=== PATIENT | male | born 1945 | race Caucasian/White ===

== ENCOUNTER 2016-06-15 17:00 | Emergency (ER) | payer MEDICARE, OTHER ==
[2016-06-15] MEDS ORDERED: SODIUM CHLORIDE 0.9% 1,000 ML IV ONE (21:24)
[2016-06-15] MEDS ORDERED: ONDANSETRON 4 MG/2 ML VIAL IVP STA (22:07)
[2016-06-15] MEDS ORDERED: IOPAMIDOL-300 100 ML VIAL IVP ONE (22:15)
[2016-06-15] MEDS ORDERED: AMOX/CLAV 875 MG/125 MG TABLET PO STA (22:59)
[2016-06-15] MEDS ORDERED: AMOX/CLAV 875 MG/125 MG TABLET PO ONE (23:03)
== END 2016-06-15 23:10 | disposition home or self-care (01) ==
DX: K57.32 Diverticulitis of large intestine without perforation or abscess without bleeding (principal); Z86.711 Personal history of pulmonary embolism; R03.0 Elevated blood-pressure reading, without diagnosis of hypertension
CPT/HCPCS: 36415; 74177; 80053; 81003; 83690; 85025; 99284; A9270; Q9967

== ENCOUNTER 2017-11-06 09:47 | Outpatient (CLI) | payer MEDICARE, OTHER | END 2017-11-06 09:48 | disposition home or self-care (01) | LOC: SC 09:47 | PROVIDERS: ATTEND Internal Medicine Pulmonary Disease | DX: G47.30 Sleep apnea, unspecified (principal); G47.10 Hypersomnia, unspecified; R06.83 Snoring | CPT/HCPCS: 99203; G0463; 99212 ==

== ENCOUNTER 2018-01-10 10:15 | Outpatient (CLI) | payer MEDICARE, OTHER | END 2018-01-10 10:16 | disposition home or self-care (01) | LOC: SC 10:15 | PROVIDERS: ATTEND Nurse Practitioner Family | DX: G47.33 Obstructive sleep apnea (adult) (pediatric) (principal) | CPT/HCPCS: 99214; G0463; 99212 ==

== ENCOUNTER 2018-03-20 11:13 | Outpatient (CLI) | payer MEDICARE, OTHER | END 2018-03-20 11:14 | disposition home or self-care (01) | LOC: SC 11:13 | PROVIDERS: ATTEND Nurse Practitioner Family | DX: G47.33 Obstructive sleep apnea (adult) (pediatric) (principal) | CPT/HCPCS: 99215; G0463; 99212 ==

== ENCOUNTER 2018-05-03 14:14 | Outpatient (CLI) | payer MEDICARE | END 2018-05-03 14:15 | disposition home or self-care (01) | LOC: SC 14:14 | PROVIDERS: ATTEND Nurse Practitioner Family | DX: G47.33 Obstructive sleep apnea (adult) (pediatric) (principal) | CPT/HCPCS: 99214; G0463; 99212 ==

== ENCOUNTER 2018-09-18 09:15 | Outpatient (CLI) | payer MEDICARE | END 2018-09-18 09:16 | disposition home or self-care (01) | LOC: SC 09:15 | PROVIDERS: ATTEND Nurse Practitioner Family | DX: G47.33 Obstructive sleep apnea (adult) (pediatric) (principal) | CPT/HCPCS: 99214; G0463; 99212 ==

== ENCOUNTER 2019-01-29 10:53 | Outpatient (CLI) | payer MEDICARE ==
[2019-01-29 11:04] VITALS: BP 114/80
--- NOTE | 2019-01-29 11:04 | SLEEP CARE CONSULTATION ---
Information from patient questionnaire entered by Halima Coles. I have reviewed and concur with the information entered by Halima Coles. This document represents the service I personally performed and the decisions made by me, Angela Catalan, RN, MSN, [employer]. History of Present Illness Previous diagnosis: Moderate, Obstructive Sleep Apnea-Hypopnea Syndrome AHI: 22.8 Reason for follow up: six month Equipment type: CPAP Equipment obtained from: [facility] Mask style: Nasal (Dreamwear) Mask brand: Respironics Backup mask available: No (keep current mask as spare when replaced) Last cushion change: 2 weeks ago - changes about monthly Prior sleep studies: Yes CPAP Compliance Data - Data Reviewed with Patient Average duration of nightly device use: 7h 40m Compliance rate %: 95 Current pressure setting (cmH2O): 9 Humidity settin Heated hose settin Average residual AHI: 4.1 Average large leak: 1m 21s Subjective Missed days of use due to: reports: travel (camping unable to use. ) Patient concerns: reports: mask discomfort (sometimes the mask pinches the nose and adjusts for comfort. The cushion will also slip. ), dry mouth, nose, throat (*mouth - every couple months ). denies: aerophagia, air blowing in eyes, mask leak noise, condensation in mask/hose, nasal congestion, epistaxis Observed to snore while using device: No Current pressure setting perceived as: comfortable On therapy, patient: reports: sleeping better, awakening more refreshed, being more awake and alert during the day, more rested overall. denies: drowsiness while driving Initial [place] Sleepiness Scale score: 7 Current [place] Sleepiness Scale score: 6 Allergies and Home Medications Known drug allergies: No Home medication list reviewed: Yes Allergy and home medication list: Medication Name (generic/name brand) Strength & Dosage Magnesium Glycinate 120mg tab two daily at bedtime Turmeric PRN Review of Systems Review of systems same as previous: Yes Physical Exam Blood Pressure: 114/80 Cuff size: regular Heart Rate: 59 O2 Saturation: 98 Height: 5 ft 10 in Weight: 178 lb 9.6 oz Weight change since last visit: lost 2.4 pounds Body Mass Index: 25.6 BMI Classification: Overweight Impression and Plan 1. Obstructive Sleep Apnea-Hypopnea Syndrome, moderate, with good treatment compliance and good apnea control. On CPAP therapy, the patient has better sleep quality and is more rested overall. For ease of travel in airlines the CPAP is a medical Carry on. The size can be reduced by removing humidity but is noisier. If trouble getting distilled water, can use saline nasal spray given to prep nose with moisture. Advised to check process before travel. Saline nasal spray also be used prior to CPAP to clear nose of dried secretions and washes off allergens. An extension cord was also advised in case the bed is not near an outlet. For camping, a CPAP battery is available. Questions answered re pressure. His weight is stable and may try to lose a few pounds only. He is aware of symptoms to report for pressure change if needed for weight change. For his mask concerns, he was shown mask alternatives. He would like to try the [employer] mask. I will order a mask refitting. He is to contact [facility] for fitting and process discussed. For dryness symptoms, he can adjust the humidity as shown on sample device. Printed instructions given. Cleaning questions answered and printed reference sheet given. Patient's apnea severity and rationale for treatment to reduce apnea, improve sleep quality and reduce cardiovascular and cerebrovascular events was reviewed. I also reviewed the benefit of consistent device use of CPAP for his restless leg syndrome. * Continue CPAP pressure at 9 cmH2O * Implement travel tips. * mask refitting. * Adjust humidity as instructed * Notify me if snoring with mask or feeling that the pressure is too much or too little * Attempt to lose some weight * Return for follow up in 1 year, or sooner if concerns arise I spent 100% of this 30 minute visit face to face with the patient with greater than 50% of this was spent time counseling the patient and coordination of care.
== END 2019-01-29 10:54 | disposition home or self-care (01) ==
LOC: SC 10:53
PROVIDERS: ATTEND Nurse Practitioner Family
DX: G47.33 Obstructive sleep apnea (adult) (pediatric) (principal)
CPT/HCPCS: 99214; G0463; 99212

== ENCOUNTER 2020-01-15 07:54 | Outpatient (CLI) | payer MEDICARE ==
[2020-01-15 14:36] LABS: BASOPHILS % (AUTO) 0.6 %; EOSINOPHILS # (AUTO) 0.1 10^3/uL (0.0-0.7); EOSINOPHILS % (AUTO) 2.3 %; HGB - HEMOGLOBIN 14.8 g/dL (14.0-18.0); LYMPHOCYTES # (AUTO) 1.5 10^3/uL (1.5-3.5); LYMPHOCYTES % (AUTO) 28.1 %; MEAN CORPUSCULAR HEMOGLOBIN 32.9 pg (27.0-31.0); MEAN CORPUSCULAR HGB CONC 33.8 g/dL (32.0-36.0); MEAN CORPUSCULAR VOLUME 97.3 fL (80.0-94.0); MEAN PLATELET VOLUME 11.1 fL (7.4-11.4); MONOCYTES # (AUTO) 0.6 10^3/uL (0.0-1.0); MONOCYTES % (AUTO) 10.6 %; NEUTROPHILS # (AUTO) 3.1 10^3/uL (1.5-6.6); PLT - PLATELET COUNT 165 10^3/uL (130-450); RED CELL DISTRIBUTION WIDTH 12.5 % (12.0-15.0); WHITE BLOOD COUNT 5.3 x10^3/uL (4.8-10.8)
[2020-01-15 14:47] LABS: ALBUMIN 3.9 g/dL (3.2-5.5); ALBUMIN/GLOBULIN RATIO 1.3 (1.0-2.2); ALKALINE PHOSPHATASE 38 IU/L (42-121); ALT ALANINE AMINOTRANSFERASE 18 IU/L (10-60); AST ASPARTATE AMINOTRANSFERASE 25 IU/L (10-42); BILIRUBIN,TOTAL 0.8 mg/dL (0.2-1.0); BUN - BLOOD UREA NITROGEN 23 mg/dL (6-20); CALCIUM 9.3 mg/dL (8.5-10.3); CARBON DIOXIDE - CO2 26 mmol/L (21-32); CHLORIDE 106 mmol/L (101-111); CHOL/HDL RATIO 4.3 (<5.0); CHOLESTEROL 233 mg/dL; GLUCOSE 97 mg/dL (70-100); HDL CHOLESTEROL 54 mg/dL; LDL CHOLESTEROL,CALCULATED 161 mg/dL; SODIUM 140 mmol/L (135-145); VLDL CHOLESTEROL 18 mg/dL
== END 2020-01-15 07:55 | disposition home or self-care (01) ==
LOC: LAB.S 07:54
PROVIDERS: ATTEND Internal Medicine
DX: Z00.00 Encounter for general adult medical examination without abnormal findings (principal); Z12.5 Encounter for screening for malignant neoplasm of prostate
CPT/HCPCS: 36415; 80053; 80061; 85025; G0103; 83721; 84153

== ENCOUNTER 2020-10-23 14:15 | Outpatient (CLI) | payer MEDICARE ==
--- NOTE | 2020-10-23 14:40 | SLEEP CARE CONSULTATION ---
Information from patient questionnaire entered by Catrachita Jain. I have reviewed and concur with the information entered by Catrachita Jain. This document represents the service I personally performed and the decisions made by , Zoila Montalvo ARNP. History of Present Illness Service Date and Time: 10/23/2020 1415 Previous diagnosis: Moderate, Obstructive Sleep Apnea-Hypopnea Syndrome AHI: 22.8 (in 2018) Reason for follow up: annual (last seen 01/2019) Equipment type: CPAP Equipment obtained from: [employer] (getting supplies as needed) Mask style: Nasal Mask brand: Respironics (Dreamwear Wisp) Backup mask available: No (unsure; will keep old mask when replaced) Last cushion change: 1-2 months Prior sleep studies: Yes Year and Where: 2018 - [facility] Type of Sleep Study: Home sleep study HPI additional information: ASHLEY VERA was diagnosed to have moderate, AHI 22.8, obstructive sleep apnea-hypopnea syndrome and returns via Telehealth visit today for CPAP therapy annual follow-up. CPAP Compliance Data - Data Reviewed with Patient Average duration of nightly device use: 6 hr 40 min Compliance rate %: 96.7 (180 days) Current pressure setting (cmH2O): 9 Humidity settin Heated hose settin Average residual AHI: 3.6 Average large leak: 6 min 20 sec Subjective Patient concerns: reports: mask leak noise (comes from the top of mask headgear), other (machine on recall; occasional Cpap cough). denies: aerophagia, mask discomfort, air blowing in eyes, condensation in mask/hose, nasal congestion, dry mouth, nose, throat, epistaxis Observed to snore while using device: No Current pressure setting perceived as: comfortable On therapy, patient: reports: sleeping better, awakening more refreshed, being more awake and alert during the day, more rested overall. denies: drowsiness while driving Initial [place] Sleepiness Scale score: 7 (in 2018) Current [place] Sleepiness Scale score: 8 Allergies and Home Medications Home medication list reviewed: Yes (no changes) Review of Systems Review of systems same as previous: Yes (no changes) Physical Exam Vital signs obtained and entered by: Telehealth visit to reduce exposure during Covid pandemic Height: 5 ft 10 in Impression and Plan 1. Obstructive Sleep Apnea-Hypopnea Syndrome, moderate, with good treatment compliance and good apnea control. On CPAP therapy, the patient has better sleep quality and is more rested overall. Patient is concerned about the recall on his device. Patient has already registered their device for the recall. Patient denies any black particles seen in machine or hoses, any unusual odors coming from device. Patient has had an intermittent cough since he has been using this machine but he is not sure if it is from machine or other causes. Patient informed that they may use an inline CPAP filter that they can obtain online to reduce chance of any particles being inhaled or ingested. We discussed thoroughly the health risks of not using the CPAP versus continuing use with the filter in place and he intends to get filter and continue using his CPAP. If patient is not able to sleep due to waking up choking, gasping for air or other respiratory distress that they may decide to continue using it until it is either replaced or repaired. Patient states his device is still under warranty and would like to try to get a replacement device because he is getting some upper airway irritation which could be due to the recall. I will write a prescription and send to his DME. He will let us know if he is able to get a replacement device and make a follow up for device compliance followup. Patient voiced understanding and agreement with plan. Patient's apnea severity and rationale for treatment to reduce apnea, improve sleep quality and reduce cardiovascular and cerebrovascular events was reviewed. I also reviewed the benefit of consistent device use of CPAP for RLS. * Continue auto CPAP pressure at 9 cmH2O * Replacement device prescription * Notify me if snoring with mask or feeling that the pressure is too much or too little * Attempt to lose weight * Call this office if any problems using CPAP * Return for follow up in 1 year or one month after he obtains new device, or sooner if concerns arise Counseling Topics: Spare mask, Weight loss health impact Visit Type: Telehealth Video Video Type: VSee Patient Location: Home Location of Provider: Office Patient agrees and consents to this telehealth visit type: Yes Patient agrees to have their insurance billed: Yes Time Spent with Patient (minutes): 24 Provider Statement: I spent 100% of the Telehealth Video Call with the patient with greater than 50% spent counseling the patient and coordination of care.
== END 2020-10-23 14:16 | disposition home or self-care (01) ==
LOC: SC 14:15
PROVIDERS: ATTEND Nurse Practitioner Family
DX: G47.33 Obstructive sleep apnea (adult) (pediatric) (principal)

== ENCOUNTER 2020-11-03 08:00 | Outpatient (CLI) | payer MEDICARE ==
--- NOTE | 2020-11-03 15:13 | XRAY Report ---
PROCEDURE: Chest 2 View X-Ray INDICATIONS: VIRAL LOWER RESPIRATORY INFECTION TECHNIQUE: 2 view(s) of the chest. COMPARISON: None. FINDINGS: Surgical changes and devices: None. Lungs and pleura: No pleural effusions or pneumothorax. Focal opacity noted in the right upper lobe. Mediastinum: Mediastinal contours are normal. Heart size is normal. Bones and chest wall: No suspicious bony abnormalities. Soft tissues appear unremarkable. IMPRESSION: Right upper lobe pneumonia. Recommend follow-up chest x-rays to resolution of the findin g to exclude underlying neoplastic process. Reviewed by: Alma Jimenez MD, PhD on 11/03/2020 3:12 PM PDT Approved by: Alma Jimenez MD, PhD on 11/03/2020 3:12 PM PDT Station ID: [id number]
== END 2020-11-03 23:59 | disposition home or self-care (01) ==
LOC: DI.S 08:00
PROVIDERS: ATTEND Emergency Medicine
DX: B34.9 Viral infection, unspecified (principal); J18.1 Lobar pneumonia, unspecified organism
CPT/HCPCS: 36415; 85379

== ENCOUNTER 2020-11-03 21:22 | Emergency (ER) | payer MEDICARE ==
[2020-11-03 21:50] LABS: BASOPHILS % (AUTO) 0.5 %; EOSINOPHILS # (AUTO) 0.2 10^3/uL (0.0-0.7); EOSINOPHILS % (AUTO) 1.9 %; HCT - HEMATOCRIT 40.4 % (42.0-52.0); HGB - HEMOGLOBIN 13.6 g/dL (14.0-18.0); LYMPHOCYTES % (AUTO) 11.6 %; MEAN CORPUSCULAR HEMOGLOBIN 32.2 pg (27.0-31.0); MEAN CORPUSCULAR HGB CONC 33.7 g/dL (32.0-36.0); MEAN CORPUSCULAR VOLUME 95.5 fL (80.0-94.0); MEAN PLATELET VOLUME 10.1 fL (7.4-11.4); MONOCYTES # (AUTO) 0.8 10^3/uL (0.0-1.0); MONOCYTES % (AUTO) 9.9 %; NEUTROPHILS # (AUTO) 6.4 10^3/uL (1.5-6.6); NEUTROPHILS % (AUTO) 75.7 %; PLT - PLATELET COUNT 164 10^3/uL (130-450); RED BLOOD COUNT 4.23 10^6/uL (4.70-6.10); RED CELL DISTRIBUTION WIDTH 12.5 % (12.0-15.0); WHITE BLOOD COUNT 8.4 x10^3/uL (4.8-10.8)
[2020-11-03 22:00] LABS: CREATININE 1.2 mg/dL (0.6-1.2)
[2020-11-03] MEDS ORDERED: IOPAMIDOL-300 100 ML VIAL ONE (23:02)
[2020-11-03] MEDS ORDERED: IOPAMIDOL-300 100 ML VIAL IVP ONE (23:38)
[2020-11-03] MEDS ORDERED: BENZONATATE 100 MG CAPSULE PO STA (23:55)
[2020-11-03] MEDS ORDERED: ALBUTEROL 1 PUFF INH STA (23:55)
--- NOTE | 2020-11-03 23:55 | ED Physician Documentation ---
PD HPI DYSPNEA - Stated complaint Stated Complaint: SOA - Chief complaint Chief Complaint: Resp - History obtained from History obtained from: Patient - History of Present Illness Timing - onset: How many weeks ago (1) Timing - onset during: Light activity Timing - duration: Weeks (1) Timing - details: Gradual onset, Still present Inciting event(s): No: Out of meds, URI Associated symptoms: Cough. No: Fever, Wheezing, Chest pain / discomfort, Palpitations, Bilateral edema, Unilateral edema Recently seen: Clinic (seen at [facility] and had CXR showing right upper pneumonia. Also history of PE few years ago, so had D-dimer test that was elevated.) Review of Systems Constitutional: denies: Fever, Chills Nose: denies: Rhinorrhea / runny nose, Congestion Throat: denies: Sore throat Cardiac: denies: Chest pain / pressure, Palpitations, Pedal edema, Calf pain Respiratory: reports: Dyspnea, Cough. denies: Wheezing GI: denies: Nausea, Vomiting, Diarrhea PD PAST MEDICAL HISTORY - Past Medical History Cardiovascular: Hypertension, Pulmonary embolism (after hernia surgery few years ago. On anticoag for 6 months only, as considered provoked cause. ) Respiratory: None Neuro: None Endocrine/Autoimmune: None - Past Surgical History Ortho: Hip replacement - Present Medications Home Medications: Ambulatory Orders Medication Instructions Recorded Confirmed Amox/Clav 875/125 [Augmentin] 1 each PO Q12H #20 tablet 06/15/16 Glucosamine Sulfate 500 mg PO DAILY 06/15/16 06/15/16 Magnesium Citrate 100 mg PO DAILY 06/15/16 06/15/16 Ondansetron Odt [Zofran] 4 mg TL Q6H PRN #10 tablet 06/15/16 Albuterol Sulf [Ventolin Hfa 2 - 3 puffs INH QID 21 Days #1 11/04/20 Inhaler] inhaler Rivaroxaban [Xarelto] 15 mg PO BID 21 Days #42 tablet 11/04/20 - Allergies Allergies/Adverse Reactions: Allergies Allergy/AdvReac Type Severity Reaction Status Date / Time No Known Drug Allergies Allergy Verified 11/03/20 21:28 - Social History Does the pt smoke?: No Smoking Status: Never smoker Does the pt have substance abuse?: No - Immunizations Immunizations are current?: Yes PD ED PE NORMAL - Vitals Vital signs reviewed: Yes - General General: Alert and oriented X 3, No acute distress, Well developed/nourished - HEENT HEENT: Pharynx benign - Neck Neck: Supple, no meningeal sign, No adenopathy - Cardiac Cardiac: RRR, No murmur - Respiratory Respiratory: No: Clear bilaterally (congestion sounds right upper. ) - Abdomen Abdomen: Soft, Non tender - Back Back: No CVA TTP - Derm Derm: Normal color, Warm and dry - Extremities Extremities: No tenderness to palpate, Normal ROM s pain, No edema, No calf tenderness / cord - Neuro Neuro: Alert and oriented X 3, No motor deficit, Normal speech Results - Vitals Vitals: Oxygen O2 Source Room air - Labs Labs: Laboratory Tests 11/03/20 11/03/20 11/03/20 21:44 21:44 21:44 WBC 8.4 RBC 4.23 L Hgb 13.6 L Hct 40.4 L MCV 95.5 H MCH 32.2 H MCHC 33.7 RDW 12.5 Plt Count 164 MPV 10.1 Neut # (Auto) 6.4 Lymph # (Auto) 1.0 L Sanders # (Auto) 0.8 Eos # (Auto) 0.2 Baso # (Auto) 0.0 Absolute Nucleated RBC 0.00 Nucleated RBC % 0.0 Sodium 140 Potassium 4.0 Chloride 106 Carbon Dioxide 24 Anion Gap 10.0 BUN 19 Creatinine 1.2 Estimated GFR (MDRD) 59 L Glucose 135 H Calcium 9.0 Troponin I High Sens 9.5 B-Natriuretic Peptide 11/03/20 21:44 WBC RBC Hgb Hct MCV MCH MCHC RDW Plt Count MPV Neut # (Auto) Lymph # (Auto) Sanders # (Auto) Eos # (Auto) Baso # (Auto) Absolute Nucleated RBC Nucleated RBC % Sodium Potassium Chloride Carbon Dioxide Anion Gap BUN Creatinine Estimated GFR (MDRD) Glucose Calcium Troponin I High Sens B-Natriuretic Peptide 78 - Rads (name of study) chest CT-A Radiology: Prelim report reviewed, Discussed with rads (right upper infiltrate c/w pneumonia. Multiple subsegmental filling defects bilaterally. Segmental filling defect right upper area near infiltrate. ), See rad report PD MEDICAL DECISION MAKING - ED course Complexity details: reviewed results, considered differential (patient is clinically doing well without signs of heart failure. He is reasonable for outpt therapy. His preference is for discharging home. ), d/w patient Departure - Departure Disposition: 01 Home, Self Care Clinical Impression: Pneumonia Qualifiers: Pneumonia type: due to unspecified organism Laterality: right Lung location: upper lobe of lung Qualified Code(s): J18.9 - Pneumonia, unspecified organism Pulmonary emboli Qualifiers: Pulmonary embolism type: multiple subsegmental (without acute cor pulmonale) Qualified Code(s): I26.94 - Multiple subsegmental pulmonary emboli without acute cor pulmonale Condition: Stable Record reviewed to determine appropriate education?: Yes Instructions: Embolism Pulmonary Dc, ED Pneumonia Adult Follow-Up: Zaheer Cortes MD [Primary Care Provider] - Prescriptions: Albuterol Sulf [Ventolin Hfa Inhaler] 2 - 3 puffs INH QID 21 Days #1 inhaler Rivaroxaban [Xarelto] 15 mg PO BID 21 Days #42 tablet Comments: Your CT scan shows multiple small clots in the small blood vessels on the left and the right. This most commonly occurs when a clot came through the venous side into the right side of the heart and broke up into small pieces as it was added by the a heart valves. You will want to be on a blood thinner for the next likely [address] scan also confirmed the pneumonia on the right upper area. Use the Augmentin antibiotic previously prescribed. You could also add an albuterol inhaler 2 to 3 puffs 4 times a day for the next couple of weeks to help aeration through the lungs and improve breathing. Stay adequately hydrated. Follow-up with your primary care in the next several days to a week or so. You will need to discuss with your primary care and possibly in conjunction with a supervisor grinding and subsequent blood testing to decide if there is a need for lifelong blood thinning/ any signs of an underlying clotting disorder. Transmitted your prescriptions to the [facility] in [place]. Discharge Date/Time: 11/04/20 01:29
[2020-11-04] MEDS ORDERED: RIVAROXABAN 15 MG TABLET PO STA (01:13)
[2020-11-04 01:29] VITALS: BP 147/93
--- NOTE | 2020-11-04 09:33 | CT Report ---
PROCEDURE: ANGIO CHEST W/WO INDICATIONS: dyspnea, infiltrate, elevated d-dimer CONTRAST: IV CONTRAST: Isovue 300 ml: 80 PO CONTRAST: *NO PO CONTRAST TECHNIQUE: After the administration of intravenous contrast, images were acquired from the pulmonary apices to t he posterior costophrenic angles. 3-dimensional maximum intensity projection (MIP) coronal and sagit camila reformats were then acquired through the thorax. For radiation dose reduction, the following was used: automated exposure control, adjustment of mA and/or kV according to patient size. COMPARISON: Chest x-ray, 11/03/2020. FINDINGS: Image quality: Excellent. Pulmonary arteries: Pulmonary arteries are normal in size. There are multiple intraluminal filling d efects involving upper and lower lobe segmental and subsegmental arteries bilaterally consistent with pulmonary embolism. Lungs and pleura: Lungs are clear. No pleural effusions or pneumothorax. Central and peripheral ai rways are patent. Mediastinum: Heart size is prominent. The right right ventricle is moderately dilated suggesting rig ht heart strain. No pericardial effusion. Zdal-ec-hcuzmuey coronary artery desiccation. No mediastin al or hilar adenopathy. Thoracic aorta is normal in caliber and enhancement. Esophagus is normal in caliber. Small hiatal hernia. Bones and chest wall: No suspicious bony lesions. There are moderate to severe degenerative changes in the thick and upper lumbar spine. No axillary or supraclavicular adenopathy. The thyroid is norm al in size and there are no incidental findings. Abdomen: Visualized upper abdominal solid organs appear normal in the early arterial phase of enhanc ement. IMPRESSION: 1. Bilateral pulmonary comparison. 2. A triangular-shaped peripheral airspace density in the central cavity in the right upper lobe coul d represent pulmonary infarct. Differential diagnoses include infectious or inflammatory processes. R ecommend clinical correlation. 3. Dilated right ventricle suggesting right heart strain. 4. Hslp-qy-szqvyvho coronary artery calcification. No significant discrepancy with the preliminary interpretation. Reviewed by: Alvaro Us MD on 11/04/2020 9:32 AM PDT Approved by: Alvaro Us MD on 11/04/2020 9:32 AM PDT Station ID: [id number]
== END 2020-11-04 01:29 | disposition home or self-care (01) ==
LOC: ED 21:22
DX: J18.9 Pneumonia, unspecified organism (principal); I26.94 Multiple subsegmental thrombotic pulmonary emboli without acute cor pulmonale; Z79.01 Long term (current) use of anticoagulants
CPT/HCPCS: 36415; 71275; 80048; 83880; 84484; 85025; 94640; 94664; 99284; A9270; Q9967

== ENCOUNTER 2020-12-14 09:23 | Outpatient (CLI) | payer MEDICARE ==
[2020-12-14] MEDS ORDERED: IOVERSOL 320 100 ML VIAL IVP ONE ×2 (09:34→10:03)
--- NOTE | 2020-12-14 10:55 | CT Report ---
PROCEDURE: CHEST W INDICATIONS: MULT SUBSEGMENTAL PULMON EMBOLI WITHOUT ACUTE COR CONTRAST: IV CONTRAST: Optiray 320 ml: 100 PO CONTRAST: *NO PO CONTRAST TECHNIQUE: After the administration of intravenous contrast, 1 mm axial images were acquired from the pulmonary apices through the posterior costophrenic angles. Axial 5 mm soft tissue kernel reconstructions were performed as well as 8 mm axial MIP and coronal and sagittal 5 mm reformations. For radiation dose reduction, the following was used: automated exposure control, adjustment of mA and/or kV according to patient size. COMPARISON: None. FINDINGS: Image quality: Excellent. Lungs and pleura: Airspace is significantly smaller with only residual scarring seen on the current CT. opacity seen on the prior CT on 11/04/2020No acute air space opacities. No pleural effusions or pn eumothorax. Central and peripheral airways are patent and normal in caliber. Mediastinum: Heart size is normal. No pericardial effusion. The coronary arteries have atherosclero tic calcifications. No mediastinal or hilar adenopathy by size criteria. Thoracic aorta and central pulmonary arteries are normal in size. Pulmonary artery emboli seen on the prior CT on 11/03/2020 are n o longer present. Esophagus is normal in caliber. No hiatal hernia. Bones and chest wall: No suspicious bony lesions. No vertebral body compression fractures. Multile marc degenerative changes of the thoracic spine. No axillary or supraclavicular adenopathy by size cri teria. Thyroid gland . Abdomen: Visualized upper abdominal solid organs appear normal. Upper abdominal bowel loops are nor mal in caliber. IMPRESSION: 1. Interval resolution of previously seen pulmonary emboli. 2. Right upper lobe airspace density seen on the prior CT thought to possibly be a pulmonary infarct has resolved with only residual scarring seen on the current exam. Follow-up CT in 6 months could be performed to demonstrate complete resolution and to rule out underlying mass. 2. No evidence of metastatic disease on the current CT. Reviewed by: Erwin Coto on 12/14/2020 10:53 AM PDT Approved by: Erwin Coto on 12/14/2020 10:53 AM PDT Station ID: [id number]
== END 2020-12-14 09:24 | disposition home or self-care (01) ==
LOC: DI 09:23
PROVIDERS: ATTEND Internal Medicine
DX: I26.99 Other pulmonary embolism without acute cor pulmonale (principal)
CPT/HCPCS: 71260; Q9967

== ENCOUNTER 2021-01-08 11:24 | Outpatient (CLI) | payer MEDICARE | END 2021-01-08 11:25 | disposition home or self-care (01) | LOC: LAB.S 11:24 | PROVIDERS: ATTEND Internal Medicine | DX: I26.99 Other pulmonary embolism without acute cor pulmonale (principal) | CPT/HCPCS: 81240; 81241; 81599; 85303; 85305; 85306 ==

== ENCOUNTER 2021-05-12 09:10 | Outpatient (CLI) | payer MEDICARE ==
[2021-05-12] MEDS ORDERED: IOVERSOL 320 100 ML VIAL IVP ONE ×2 (09:23→09:56)
[2021-05-12 09:24] LABS: BASOPHILS # (AUTO) 0.1 10^3/uL (0.0-0.1); EOSINOPHILS # (AUTO) 0.1 10^3/uL (0.0-0.7); EOSINOPHILS % (AUTO) 2.6 %; HCT - HEMATOCRIT 38.9 % (42.0-52.0); HGB - HEMOGLOBIN 12.9 g/dL (14.0-18.0); LYMPHOCYTES # (AUTO) 1.3 10^3/uL (1.5-3.5); LYMPHOCYTES % (AUTO) 26.3 %; MEAN CORPUSCULAR HGB CONC 33.2 g/dL (32.0-36.0); MEAN CORPUSCULAR VOLUME 93.5 fL (80.0-94.0); MEAN PLATELET VOLUME 10.1 fL (7.4-11.4); MONOCYTES # (AUTO) 0.5 10^3/uL (0.0-1.0); MONOCYTES % (AUTO) 9.3 %; NEUTROPHILS # (AUTO) 3.1 10^3/uL (1.5-6.6); NEUTROPHILS % (AUTO) 60.4 %; PLT - PLATELET COUNT 176 10^3/uL (130-450); RED BLOOD COUNT 4.16 10^6/uL (4.70-6.10); RED CELL DISTRIBUTION WIDTH 12.7 % (12.0-15.0); WHITE BLOOD COUNT 5.1 x10^3/uL (4.8-10.8)
[2021-05-12 09:36] LABS: ALBUMIN/GLOBULIN RATIO 1.3 (1.0-2.2); BILIRUBIN,TOTAL 0.7 mg/dL (0.2-1.0); CALCIUM 9.1 mg/dL (8.5-10.3); CREATININE 1.1 mg/dL (0.6-1.2); POTASSIUM 4.3 mmol/L (3.5-5.0)
--- NOTE | 2021-05-12 14:36 | CT Report ---
PROCEDURE: CHEST W INDICATIONS: MULT SUBSEGMENTAL PULMON EMBOLI CONTRAST: IV CONTRAST: Optiray 320 ml: 100 PO CONTRAST: *NO PO CONTRAST TECHNIQUE: After the administration of intravenous contrast, 1 mm axial images were acquired from the pulmonary apices through the posterior costophrenic angles. Axial 5 mm soft tissue kernel reconstructions were performed as well as 8 mm axial MIP and coronal and sagittal 5 mm reformations. For radiation dose reduction, the following was used: automated exposure control, adjustment of mA and/or kV according to patient size. COMPARISON: CT chest 12/14/2020, CT chest angiogram 11/03/2020. FINDINGS: Image quality: Excellent. Lungs and pleura: There is progressive decrease in a peripheral region of consolidation in the right upper lobe with mild residual linear scarring. No new suspicious nodules or mass lesions. There is mi ld dependent atelectasis bilaterally. There are a few bilateral calcified nodules redemonstrated cons istent with sequelae of old granulomatous disease. No pleural effusions or pneumothorax. Central and peripheral airways are patent and normal in caliber. Mediastinum: Heart size is normal. No pericardial effusion. The opacified pulmonary arteries demon strate no filling defects centrally. The visualized aorta is normal in caliber and contour. No medias tinal or hilar adenopathy by size criteria. Esophagus is normal in caliber. There is a small hiatal hernia. Bones and chest wall: No suspicious bony lesions. No vertebral body compression fractures. No axil michelle or supraclavicular adenopathy by size criteria. The thyroid demonstrates no discrete nodules. Abdomen: Visualized upper abdominal solid organs appear normal. Upper abdominal bowel loops are nor mal in caliber. IMPRESSION: 1. Progressive resolution of peripheral opacity in the right upper lobe with mild residual scarring. 2. No lymphadenopathy or other evidence of metastatic disease in the thorax. Reviewed by: Norbert Khan MD on 05/12/2021 2:35 PM PDT Approved by: Norbert Khan MD on 05/12/2021 2:35 PM PDT Station ID: [id number]
== END 2021-05-12 09:11 | disposition home or self-care (01) ==
LOC: DI 09:10
PROVIDERS: ATTEND Internal Medicine
DX: R91.8 Other nonspecific abnormal finding of lung field (principal); I26.94 Multiple subsegmental thrombotic pulmonary emboli without acute cor pulmonale; Z86.718 Personal history of other venous thrombosis and embolism; J98.4 Other disorders of lung
CPT/HCPCS: 36415; 71260; 80053; 85025; 85379; 85651; Q9967

== ENCOUNTER 2021-09-23 08:00 | Outpatient (CLI) | payer MEDICARE ==
--- NOTE | 2021-09-23 11:28 | XRAY Report ---
PROCEDURE: Knee 2 View RT INDICATIONS: RIGHT KNEE PAIN TECHNIQUE: 2 views of the right knee(s) were acquired. COMPARISON: None. FINDINGS: Bones: No fractures or dislocations. No suspicious bony lesions. Soft tissues: Small joint effusion. Vascular calcifications consistent with atherosclerosis. IMPRESSION: 1. No acute osseous amenities. 2. Kxle-zk-wvedlpqi degenerative joint disease. 3. Small knee joint effusion. 4. Atherosclerosis. Reviewed by: Alvaro Us MD on 09/23/2021 11:27 AM PDT Approved by: Alvaro Us MD on 09/23/2021 11:27 AM PDT Station ID: [id number]
== END 2021-09-23 23:59 | disposition home or self-care (01) ==
LOC: DI.S 08:00
PROVIDERS: ATTEND Registered Nurse
DX: M17.11 Unilateral primary osteoarthritis, right knee (principal); M25.461 Effusion, right knee; I70.201 Unspecified atherosclerosis of native arteries of extremities, right leg

== ENCOUNTER 2022-12-13 09:17 | Outpatient (CLI) | payer MEDICARE ==
--- NOTE | 2022-12-13 09:43 | XRAY Report ---
PROCEDURE: Ankle 3 View LT INDICATIONS: LEFT ANKLE PAIN TECHNIQUE: 3 views of the ankle were acquired. COMPARISON: None. FINDINGS: Bones: No fractures or dislocations. Ankle mortise is normally aligned. No suspicious bony lesions . Soft tissues: Moderate tibiotalar joint effusion. Achilles tendon appears normal. IMPRESSION: No acute bony abnormality. Moderate ankle joint effusion. Reviewed by: Jesus Mujica on 12/13/2022 9:42 AM PDT Approved by: Jesus Mujica on 12/13/2022 9:42 AM PDT Station ID: [id number]
== END 2022-12-13 23:59 | disposition home or self-care (01) ==
LOC: DI.S 09:17
PROVIDERS: ATTEND Physician Assistant
DX: M25.572 Pain in left ankle and joints of left foot (principal); M25.472 Effusion, left ankle

== ENCOUNTER 2023-03-23 13:09 | Emergency (ER) | payer MEDICARE ==
[2023-03-23 14:11] LABS: BASOPHILS # (AUTO) 0.1 10^3/uL (0.0-0.1); BASOPHILS % (AUTO) 0.8 %; EOSINOPHILS # (AUTO) 0.1 10^3/uL (0.0-0.7); EOSINOPHILS % (AUTO) 2.2 %; HCT - HEMATOCRIT 35.1 % (42.0-52.0); HGB - HEMOGLOBIN 11.8 g/dL (14.0-18.0); LYMPHOCYTES # (AUTO) 1.2 10^3/uL (1.5-3.5); LYMPHOCYTES % (AUTO) 19.6 %; MEAN CORPUSCULAR HEMOGLOBIN 31.5 pg (27.0-31.0); MEAN CORPUSCULAR HGB CONC 33.6 g/dL (32.0-36.0); MEAN CORPUSCULAR VOLUME 93.6 fL (80.0-94.0); MEAN PLATELET VOLUME 10.3 fL (7.4-11.4); MONOCYTES # (AUTO) 0.5 10^3/uL (0.0-1.0); MONOCYTES % (AUTO) 8.3 %; NEUTROPHILS # (AUTO) 4.1 10^3/uL (1.5-6.6); NEUTROPHILS % (AUTO) 68.8 %; PLT - PLATELET COUNT 143 10^3/uL (130-450); RED BLOOD COUNT 3.75 10^6/uL (4.70-6.10); RED CELL DISTRIBUTION WIDTH 13.6 % (12.0-15.0)
--- NOTE | 2023-03-23 14:11 | XRAY Report ---
PROCEDURE: Chest 1V INDICATIONS: SOA TECHNIQUE: One view of the chest was acquired. COMPARISON: 11/03/2020. FINDINGS: Surgical changes and devices: None. Lungs and pleura: No pleural effusions or pneumothorax. Lungs are clear. Mediastinum: Mediastinal contours appear normal. Heart size is normal. Bones and chest wall: No suspicious bony lesions. Overlying soft tissues appear unremarkable. IMPRESSION: No acute cardiopulmonary process. Reviewed by: Zach Finney MD on 03/23/2023 2:09 PM PST Approved by: Zach Finney MD on 03/23/2023 2:09 PM PST Station ID: [id number]
[2023-03-23 14:27] LABS: ALBUMIN 3.9 g/dL (3.2-5.5); ALBUMIN/GLOBULIN RATIO 1.5 (1.0-2.2); BILIRUBIN,TOTAL 0.5 mg/dL (0.2-1.0); CREATININE 1.1 mg/dL (0.6-1.3); POTASSIUM 4.3 mmol/L (3.5-4.5); TOTAL PROTEIN 6.5 g/dL (6.4-8.9)
--- NOTE | 2023-03-23 15:09 | ED Physician Documentation ---
History of Present Illness - Stated complaint Stated Complaint: SOA - Chief complaint Chief Complaint: Resp - History obtained from History obtained from: Patient - History of Present Illness Timing: How many days ago (3) Pain level max: 0 Pain level now: 0 - Additonal information Additional information: 77-year-old male presents to the emergency department stating that he has a history of an unprovoked DVT in 2007 and an unprovoked subsegmental PE in 2020. He states he has undergone a workup with hematology, no cause found. He states that they offered him to continue anticoagulation or not, he declined to continue any anticoagulation. He is on low-dose aspirin daily. He is very active and went skiing 3 days ago, there was no difficulty breathing or exerting himself while skiing. He states over the last 2 days he has noticed that he becomes fatigued more easily with exertion. No chest pain. No significant shortness of breath. He states that he does gets tired sooner and has to stop what he is doing. No cardiac history. No stents no bypasses. Concerned about potential recurrent PE. Review of Systems Constitutional: denies: Fever, Chills Respiratory: denies: Cough GI: reports: Bloody / black stool (Patient had 1 episode of bright red blood in the stool yesterday, mainly in the water. He states that he has a history of hemorrhoids and this felt similar. He states had a colonoscopy about 2 years ago that was reportedly otherwise normal.). denies: Abdominal Pain, Nausea, Vomiting, Diarrhea Skin: denies: Rash Musculoskeletal: denies: Neck pain, Back pain Neurologic: denies: Headache PD PAST MEDICAL HISTORY - Past Medical History Cardiovascular: Pulmonary embolism Respiratory: Pneumonia, Sleep apnea, CPAP use Neuro: None Endocrine/Autoimmune: None GI: None, GERD : Other HEENT: None Psych: None Musculoskeletal: Osteoarthritis Derm: None - Past Surgical History General: Other Ortho: Hip replacement, Carpal Tunnel surgery - Present Medications Home Medications: Ambulatory Orders Medication Instructions Recorded Confirmed Magnesium Citrate 100 mg PO DAILY 06/15/16 11/18/21 Aspirin [Aspirin EC] 81 mg PO DAILY 09/09/21 11/18/21 - Allergies Allergies/Adverse Reactions: Allergies Allergy/AdvReac Type Severity Reaction Status Date / Time No Known Drug Allergies Allergy Verified 03/23/23 13:22 - Social History Does the pt smoke?: No Smoking Status: Never smoker Does the pt have substance abuse?: No - Immunizations Immunizations are current?: Yes PD ED PE NORMAL - Vitals Vital signs reviewed: Yes - General General: Alert and oriented X 3, No acute distress - HEENT HEENT: Moist mucous membranes - Neck Neck: Supple, no meningeal sign - Cardiac Cardiac: RRR, Strong equal pulses - Respiratory Respiratory: No respiratory distress, Clear bilaterally - Abdomen Abdomen: Soft, Non tender, Non distended - Rectal Rectal: Pt declined - Derm Derm: Warm and dry - Extremities Extremities: No edema, No calf tenderness / cord - Neuro Neuro: Alert and oriented X 3 - Psych Psych: Normal mood, Normal affect Results - Vitals Vitals: Vital Signs - 24 hr 03/23/23 03/23/23 03/23/23 13:16 15:52 17:27 Temperature 36.7 C 36.2 C L Heart Rate 66 60 68 Respiratory 17 13 16 Rate Blood Pressure 134/90 H 130/91 H 138/92 H O2 Saturation 100 99 98 Oxygen O2 Source Room air - EKG (time done) 1458 EKG releavant findings:: EKG personally interpreted by author of this note. Relevant findings are: Rate: Rate (enter#) (58) Rhythm: NSR [place]: Normal Intervals: Normal [place] QRS: Normal Ischemia: Normal ST segments - Labs Labs: Laboratory Tests 03/23/23 03/23/23 03/23/23 14:07 14:07 14:07 WBC 6.0 RBC 3.75 L Hgb 11.8 L Hct 35.1 L MCV 93.6 MCH 31.5 H MCHC 33.6 RDW 13.6 Plt Count 143 MPV 10.3 Neut # (Auto) 4.1 Lymph # (Auto) 1.2 L [place] # (Auto) 0.5 Eos # (Auto) 0.1 Baso # (Auto) 0.1 Absolute Nucleated RBC 0.00 Nucleated RBC % 0.0 Sodium 139 Potassium 4.3 Chloride 107 Carbon Dioxide 28 Anion Gap 4.0 L BUN 24 H Creatinine 1.1 Estimated GFR (MDRD) 65 L Glucose 104 Calcium 9.0 Total Bilirubin 0.5 AST 21 ALT 12 Alkaline Phosphatase 37 L Troponin I High Sens 14.3 Total Protein 6.5 Albumin 3.9 Globulin 2.6 Albumin/Globulin Ratio 1.5 Lipase 39 - Rads (name of study) cxr Relevant Findings:: Final report received, See rad report CT PA Relevant Findings:: Final report received, See rad report PD Medical Decision Making - ED course Complexity details: reviewed results, re-evaluated patient, considered differential, d/w patient ED course: Patient does not really have dyspnea on exertion, more fatigue. He is mildly anemic, slightly lower than his last hemoglobin a few years ago. He states he has known hemorrhoids that sometimes bleed and feels like that was the rectal bleeding yesterday. Not actively bleeding today. Concern for PE, CT pulmonary angiogram does not show any evidence of pulmonary embolism. High sensitive troponin is negative after 2 days of symptoms. He is asymptomatic in the emergency department. No hypoxia. No respiratory distress. Ambulating up and down the jackson without any difficulty. Recommend a cardiac stress test as an outpatient. Recommend recheck hemoglobin with his PCP and to return for a colonoscopy should he worsen or have further bleeding. Patient is well- appearing, nontoxic. Afebrile. Patient counseled regarding signs and symptoms for which I believe and urgent re-evaluation would be necessary. Patient with good understanding of and agreement to plan and is comfortable going home at this time This document was made in part using voice recognition software. While efforts are made to proofread this document, sound alike and grammatical errors may occur. Departure - Departure Disposition: 01 Home, Self Care Clinical Impression: Dyspnea on exertion Anemia Qualifiers: Anemia type: unspecified type Qualified Code(s): D64.9 - Anemia, unspecified Condition: Stable Instructions: ED Dyspnea Shortness of Breath Follow-Up: Pily Cannon ARNP [Primary Care Provider] - Within 3 Days Comments: Your chest x-ray, EKG and CT pulmonary angiogram did not show any acute normalities today. There is no evidence of blood clots in your lungs. Your marker for heart attack is negative. It is recommended that you have a cardiac stress test with your doctor to ensure that there is no inducible ischemia. If you are having any difficulty breathing, chest pain at rest, you need to be evaluated right away. Your hemoglobin is mildly low today at 11.8. You did have an episode of rectal bleeding yesterday. The hemoglobin can be repeated in 1 week with your doctor. If the bleeding continues you will need to have a colonoscopy. Please return if you worsen. Forms: PCP List Discharge Date/Time: 03/23/23 17:20
[2023-03-23] MEDS ORDERED: iohexoL-300 100 ML VIAL ONE (15:15)
[2023-03-23] MEDS ORDERED: iohexoL-300 100 ML VIAL IVP ONE (16:42)
--- NOTE | 2023-03-23 17:02 | CT Report ---
PROCEDURE: Angio Chest INDICATIONS: dyspnea, h/o PE CONTRAST: Omni 300 80 TECHNIQUE: After the administration of intravenous contrast, 2 mm axial images were acquired from the pulmonary apices to the posterior costophrenic angles during the arterial phase. In addition, 1 mm lung kernel and 5 mm soft tissue kernel reconstructions were performed. 3-dimensional coronal oblique maximum int ensity projection (MIP) reformats, 8 mm axial MIP, and 5 mm coronal and sagittal MPR reformats were t hen performed through the thorax. For radiation dose reduction, the following was used: automated exp osure control, adjustment of mA and/or kV according to patient size. COMPARISON: CT chest with contrast dated 11/10/2021. FINDINGS: Image quality: Excellent. Large vessels: No filling defects within the opacified pulmonary arteries, accounting for motion and contrast timing. No evidence of acute aortic syndrome or aortic aneurysm. Lungs and pleura: No consolidation. No pleural effusions. No pneumothorax. No suspicious pulmonary n odules which require follow up. Mediastinum: Heart size is normal. No pericardial effusion. Mild aneurysmal dilatation of the ascendi ng aorta, measuring 4.1 cm in diameter. No mediastinal adenopathy by size criteria. Chest wall and lower neck: Thyroid is unremarkable. No axillary or supraclavicular adenopathy by size . Bones: No aggressive osseous abnormality. Upper Abdomen: Unremarkable. IMPRESSION: 1. No acute pulmonary embolic. 2. No acute pulmonary process. 3. Mild aneurysmal dilatation of the ascending aorta. Reviewed by: Zach Finney MD on 03/23/2023 5:01 PM PST Approved by: Zach Finney MD on 03/23/2023 5:01 PM PST Station ID: [id number]
[2023-03-23 17:32] VITALS: BP 138/92; O2SAT 98
== END 2023-03-23 17:20 | disposition home or self-care (01) ==
LOC: ED 13:09
DX: R53.83 Other fatigue (principal); R06.09 Other forms of dyspnea; K62.5 Hemorrhage of anus and rectum; D64.9 Anemia, unspecified; Z86.718 Personal history of other venous thrombosis and embolism; Z86.711 Personal history of pulmonary embolism; Z79.82 Long term (current) use of aspirin
CPT/HCPCS: 36415; 71045; 71275; 80053; 83690; 84484; 85025; 93005; 99283; 99284; Q9967

== ENCOUNTER 2023-07-20 10:52 | Outpatient (CLI) | payer MEDICARE | END 2023-07-20 10:53 | disposition home or self-care (01) | LOC: RT 10:52 | PROVIDERS: ATTEND Registered Nurse | DX: R06.02 Shortness of breath (principal); Z86.718 Personal history of other venous thrombosis and embolism | CPT/HCPCS: 94010; 94729 ==

== ENCOUNTER 2023-08-01 07:46 | Outpatient (CLI) | payer MEDICARE ==
--- NOTE | 2023-08-01 08:19 | CARDIAC PROCEDURE NOTE ---
Stress Test Report Service Date: 08/01/23 Service Time: 08:00 Ordering Provider: Pily Cannon FNP-C Indication for Test: Assess increased dyspnea. Significant Medical History: [place] is referred for a treadmill stress echocardiogram today, to assess an episode of rather profound fatigue with shortness of breath that occurred for a few days earlier this year. He has a history of 2 prior unprovoked pulmonary emboli, occurring in 2006 and again in 2020. Extensive prior workup, including evaluation for hypercoagulability and underlying cancer, revealed no specific cause. He was in his usual state of health and feeling generally good, in fact having skied vigorously for 2 days in February followed by some heavy work in his gardens, when he suddenly had several days of lassitude with, as mentioned above, increased shortness of breath. Due to the symptom reminiscence to his prior PE episodes he was seen at our E.D. where acute PE and ACS were excluded. He gradually improved over the next few days to weeks and feels generally back to his baseline functional status currently. He has resumed doing his usual range of outdoor activities and is not currently experiencing significant shortness of breath or any chest discomfort. He does endorse occasional palpitations and orthostatic lightheadedness. His history is otherwise notable for obstructive sleep apnea, treated with CPAP with symptom benefit and pulmonary function evaluation done in late June, showing generally favorable results for spirometry and lung volumes but a reduction in diffusion capacity, with DLCO of 69%. This was attributed to his prior pulmonary embolic episodes. Cardiac Risk Factors: Positive for hyperlipidemia (not statin treated, last values in [facility] from 2019 included TChol 233, LDLc 161, HDLc 45, TG 61) and possibly for family history of ASCVD with father having suffered a major stroke; negative for tobacco smoking, diabetes and hypertension. He also has the risk enhancing condition of ADALBERTO, treated with CPAP. Type of Stress Test: ETT with Echocardiography Procedure: -Exercise Treadmill Test- After signing informed consent, the patient underwent echo imaging at rest and thebn performed treadmill exercise using a Berry protocol. The patient exercised for 9 minutes 58 seconds and achieved a peak heart rate of 136 (89 percent predicted maximum heart rate for age), and an estimated workload of 11.7 METS. The test was terminated due to fatigue/shortness of breath. Resting heart rate: 61 Peak heart rate: 136 Normal response to exercise. Resting BP: 147/93 Peak BP: 171/85 Hypertensive at rest with physiologic responses of systolic and diastolic BPs to exercise. Room air oxygen saturation during exercise ranged between 97-98% Rhythm during exercise: Sinus rhythm throughout, but with rare isolated PACs as well as PVCs, occurring as singlets, couplets and episodic bigeminy; total PVC burden was 100 during 43 minutes of recording, with PVCs increasing with exercise and decreasing in Recovery. Symptoms: He denied specific cardiovascular symptoms, including chest discomfort, palpitations and lightheadedness. EKG at rest showed normal sinus rhythm with left anterior fascicular block pattern. EKG at peak stress showed some J-point depression with upsloping ST segments, NOT meeeting EKG diagnostic criteria for ischemia. In Recovery HR and BP rapidly and normally decreased to near-baseline levels (HR 78, BP 122/85 at 5:00). Echo imaging performed at rest and with stress will be reported separately. IMagnus MD, was present throughout this treadmill stress study and supervised it in its entirety. Summary: 1) Exercise tolerance was well above average for age and sex, as evidenced by JESUS MANUEL of at least -20%. 2) Abnormal resting EKG, but with interpretable ST/T pattern. 3) Adequate level of exercise was achieved on this treadmill stress test. 4) Hypertensive resting BP with normal BP response to exercise. 5) No ischemic changes by EKG criteria were seen at peak stress. 6) Echo image interpretation reveals normal left ventricular size and systolic function, with mild global increase in LV wall thickness. Screening evaluation was notable for mild aortic insufficiency, mild to moderate mitral regurgitation with leaflet prolapse noted, mild pulmonary insufficiency and mild to moderate TR with jet velocity of 2.7 m/s (corresponding to borderline elevated estimated pulmonary artery systolic pressure of 29 mmHg) but with normal CVP (based on IVC size and inspiratory collapse). Following completion of the exercise protocol there was appropriate hyperdynamic augmentation of all segments, indicating no evidence of prior infarct or inducible ischemia. See separate report for more details. Conclusions and Recommendations: 1) Overall this is a reassuring treadmill stress echocardiogram from the standpoint of ischemia, with exercise time that was well above average for age, normal hemodynamic responses and no symptom, EKG or echocardiographic evidence of inducible ischemia. 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 Although I do not think that the prolapse and attendant mild mitral regurgitation are etiologic for the patient's recent symptom episode, I do think it would be appropriate for him to have a full diagnostic echocardiogram to serve as a baseline for periodic repeat studies to assess for valvular disease progression in the future. 3) Given the occurrence of ventricular ectopy that increased in frequency and complexity with exercise, I think that his rhythm should be more formally ch aracterized with a 7-day CAM patch monitor, which can be placed in our MAC clinic. 4) Following completion of a formal diagnostic echocardiogram and CAM patch monitoring study it may be reasonable for him to undergo formal Cardiology evaluation, especially if the rhythm study demonstrates more complex ectopy than was seen today. There may be a role for cardiac magnetic resonance imaging in the latter case, which a ground crew chief could weigh in on. 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
== END 2023-08-01 07:47 | disposition home or self-care (01) ==
LOC: DI 07:46
PROVIDERS: ATTEND Registered Nurse
DX: R06.02 Shortness of breath (principal); G47.33 Obstructive sleep apnea (adult) (pediatric); Z86.718 Personal history of other venous thrombosis and embolism; R53.83 Other fatigue; Z86.711 Personal history of pulmonary embolism; E78.5 Hyperlipidemia, unspecified; I34.0 Nonrheumatic mitral (valve) insufficiency
CPT/HCPCS: 93350

== ENCOUNTER 2023-09-27 07:55 | Outpatient (CLI) | payer MEDICARE | END 2023-09-27 07:56 | disposition home or self-care (01) | LOC: DI 07:55 | PROVIDERS: ATTEND Registered Nurse | DX: I08.1 Rheumatic disorders of both mitral and tricuspid valves (principal); R06.02 Shortness of breath; R53.83 Other fatigue; G47.33 Obstructive sleep apnea (adult) (pediatric); Z86.711 Personal history of pulmonary embolism | CPT/HCPCS: 93307 ==